=== PATIENT | female | born 1985 | race Hispanic/Latino ===

== ENCOUNTER 2018-06-15 16:16 | Outpatient (CLI) | payer MEDICAID ==
[2018-06-15 18:25] VITALS: BP 109/65
[2018-06-15 19:33] LABS: Basophils % (Auto) 0.3 % (0.0-1.8); Eosinophils # (Auto) 0.1 K/mm3 (0.0-0.4); Eosinophils % (Auto) 0.8 % (0.0-4.3); Hematocrit 31.7 % (30.3-42.9); Hemoglobin 10.3 gm/dl (10.1-14.3); Lymphocytes # (Auto) 2.5 K/mm3 (1.2-5.4); Lymphocytes % (Auto) 16.5 % (13.4-35.0); Mean Corpuscular HGB Conc 33 % (30-34); Mean Corpuscular Volume 72 fl (79-97); Monocytes # (Auto) 0.8 K/mm3 (0.0-0.8); Monocytes % (Auto) 4.9 % (0.0-7.3); Platelet Count 229 K/mm3 (140-440); Red Blood Count 4.42 M/mm3 (3.65-5.03); Red Cell Distribution Width 14.7 % (13.2-15.2)
[2018-06-15 19:38] LABS: Mean Corpuscular Hemoglobin 23 pg (28-32)
== END 2018-06-15 20:09 | disposition home or self-care (01) ==
LOC: TRG 16:16
PROVIDERS: ATTEND Obstetrics & Gynecology
DX: O47.03 False labor before 37 completed weeks of gestation, third trimester (principal); Z3A.37 37 weeks gestation of pregnancy
CPT/HCPCS: 36415; 59025; 85025

== ENCOUNTER 2018-07-21 08:01 | Outpatient (CLI) | payer MEDICAID ==
[2018-07-21] MEDS ORDERED: XYLOCAINE TOPICAL 4% TP ONE ×2 (08:27→12:02)
== END 2018-07-21 08:02 | disposition home or self-care (01) ==
LOC: WOUND 08:01
PROVIDERS: ATTEND Surgery
DX: T81.89XA Other complications of procedures, not elsewhere classified, initial encounter (principal); Y83.8 Other surgical procedures as the cause of abnormal reaction of the patient, or of later complication, without mention of misadventure at the time of the procedure; Y92.89 Other specified places as the place of occurrence of the external cause
CPT/HCPCS: 11042; G0463; 99214

== ENCOUNTER 2018-07-28 08:35 | Outpatient (CLI) | payer MEDICAID ==
[2018-07-28] MEDS ORDERED: XYLOCAINE TOPICAL 4% TP ONE ×2 (09:12→09:22)
== END 2018-07-28 08:36 | disposition home or self-care (01) ==
LOC: WOUND 08:35
PROVIDERS: ATTEND Surgery
DX: T81.89XD Other complications of procedures, not elsewhere classified, subsequent encounter (principal); Y83.8 Other surgical procedures as the cause of abnormal reaction of the patient, or of later complication, without mention of misadventure at the time of the procedure

== ENCOUNTER 2018-08-04 08:23 | Outpatient (CLI) | payer MEDICAID ==
[2018-08-04] MEDS ORDERED: XYLOCAINE TOPICAL 4% TP ONE ×2 (08:35→08:40)
== END 2018-08-04 08:24 | disposition home or self-care (01) ==
LOC: WOUND 08:23
PROVIDERS: ATTEND Surgery
DX: T81.89XD Other complications of procedures, not elsewhere classified, subsequent encounter (principal); Y83.8 Other surgical procedures as the cause of abnormal reaction of the patient, or of later complication, without mention of misadventure at the time of the procedure

== ENCOUNTER 2018-08-18 08:28 | Outpatient (CLI) | payer MEDICAID ==
[2018-08-18] MEDS ORDERED: XYLOCAINE TOPICAL 4% TP ONE ×2 (08:33→09:00)
== END 2018-08-18 08:29 | disposition home or self-care (01) ==
LOC: WOUND 08:28
PROVIDERS: ATTEND Surgery
DX: T81.89XD Other complications of procedures, not elsewhere classified, subsequent encounter (principal); Y83.8 Other surgical procedures as the cause of abnormal reaction of the patient, or of later complication, without mention of misadventure at the time of the procedure

== ENCOUNTER 2018-10-27 12:11 | Emergency (ER) | payer OTHER ==
--- NOTE | 2018-10-27 12:34 | Emergency Department Report ---
ED Abdominal Pain HPI - General Chief Complaint: Abdominal Pain Stated Complaint: WOUND INFECTED Time Seen by Provider: 10/27/18 12:34 Source: patient Mode of arrival: Ambulatory Limitations: No Limitations - History of Present Illness Initial Comments: Patient is a 33-year-old female that presents to emergency with complaints of increasing pain to her wound. Patient states that 4 months ago she delivered a baby via and she had a wound infection and has been seeing wound care. Patient since her wound has been improving however patient today experienced an increase in tenderness and pain at the wound site. Patient st oharas she has a small opening that she had packing with a silver packing. Patient states she can see him here for about 4 months. Basically spent also been followed by her DIRECTOR OF OPERATIONS SUPPORT. Patient denies fever chills. Patient states the pain is 6 out of 10. Patient denies chest pain. Patient denies nausea vomiting. Patient shortness breath. MD Complaint: abdominal pain -: Sudden Location: suprapubic Radiation: none Migration to: no migration Severity: moderate Severity scale (0 -10): 5 Quality: aching Consistency: constant Improves With: rest Worsens With: movement Context: recent surgery/procedure Associated Symptoms: denies: nausea, vomiting, diarrhea, fever, chills, constipation, dysuria, hematemesis, hematochezia, melena, hematuria, anorexia, syncope - Related Data LMP (females 10-50): 3 weeks (s/p tubal) Home Medications Medication Instructions Recorded Confirmed Last Taken lamoTRIgine [LaMICtal] 25 mg PO QAM 08/28/16 08/28/16 Unknown Previous Rx's Medication Instructions Recorded Last Taken Type Ibuprofen [Motrin] 800 mg PO Q8HR PRN #60 tablet 08/30/16 Unknown Rx Oxycodone HCl/Acetaminophen 1 each PO Q6HR PRN #45 tablet 08/30/16 Unknown Rx [Percocet 7.5/325 mg] Ferrous Sulfate [Feosol 325 MG tab] 325 mg PO BID #60 tablet 06/26/18 Unknown Rx Ibuprofen 800 mg PO Q8H PRN #30 tablet 06/26/18 Unknown Rx oxyCODONE /ACETAMINOPHEN [Percocet 1 tab PO Q6HR PRN #40 tablet 06/26/18 Unknown Rx 5/325] Doxycycline Hyclate [Doxycycline 100 mg PO Q12HR 10 Days #20 tab 10/27/18 Unknown Rx Hyclate TAB] Allergies Allergy/AdvReac Type Severity Reaction Status Date / Time No Known Allergies Allergy Verified 10/13/15 20:54 ED Review of Systems ROS: Stated complaint: WOUND INFECTED Other details as noted in HPI Constitutional: denies: chills, fever Eyes: denies: eye pain, eye discharge, vision change ENT: denies: ear pain, throat pain Respiratory: denies: cough, shortness of breath, wheezing Cardiovascular: denies: chest pain, palpitations Endocrine: no symptoms reported Gastrointestinal: abdominal pain. denies: nausea, diarrhea Genitourinary: denies: urgency, dysuria, discharge Musculoskeletal: denies: back pain, joint swelling, arthralgia Skin: denies: rash, lesions Neurological: denies: headache, weakness, paresthesias Psychiatric: denies: anxiety, depression Hematological/Lymphatic: denies: easy bleeding, easy bruising ED Past Medical Hx - Past Medical History Previous Medical History?: Yes Hx Hypertension: No Hx CVA: Yes (mini stroke seen here Aug) Hx Congestive Heart Failure: No Hx Diabetes: No Hx Renal Disease: No Hx Sickle Cell Disease: No Hx Headaches / Migraines: Yes (MIGRAINE) Hx Seizures: Yes (Last in March 2016 on Lomectol) Hx Psychiatric Treatment: Yes (BIPOLAR,ANXIETY) Hx Asthma: No Hx COPD: No Hx HIV: No - Surgical History Past Surgical History?: Yes Hx Cholecystectomy: Yes Additional Surgical History: C SECTION - Family History Family history: no significant - Social History Smoking Status: Never Smoker Substance Use Type: None - Medications Home Medications: Home Medications Medication Instructions Recorded Confirmed Last Taken Type lamoTRIgine [LaMICtal] 25 mg PO QAM 08/28/16 08/28/16 Unknown History Ibuprofen [Motrin] 800 mg PO Q8HR PRN #60 tablet 08/30/16 Unknown Rx Oxycodone HCl/Acetaminophen 1 each PO Q6HR PRN #45 tablet 08/30/16 Unknown Rx [Percocet 7.5/325 mg] Ferrous Sulfate [Feosol 325 MG tab] 325 mg PO BID #60 tablet 06/26/18 Unknown Rx Ibuprofen 800 mg PO Q8H PRN #30 tablet 06/26/18 Unknown Rx oxyCODONE /ACETAMINOPHEN [Percocet 1 tab PO Q6HR PRN #40 tablet 06/26/18 Unknown Rx 5/325] Doxycycline Hyclate [Doxycycline 100 mg PO Q12HR 10 Days #20 tab 10/27/18 Unknown Rx Hyclate TAB] ED Physical Exam - General Limitations: No Limitations General appearance: alert, in no apparent distress - Head Head exam: Present: atraumatic, normocephalic - Eye Eye exam: Present: normal appearance - ENT ENT exam: Present: mucous membranes moist - Neck Neck exam: Present: normal inspection - Respiratory Respiratory exam: Present: normal lung sounds bilaterally. Absent: respiratory distress - Cardiovascular Cardiovascular Exam: Present: regular rate, normal rhythm. Absent: systolic murmur, diastolic murmur, rubs, gallop - GI/Abdominal GI/Abdominal exam: Present: soft, tenderness (at wound. See skin exam. Palpation over open wound. He has a slight redness around wound. Rest of abdominal exam negative), normal bowel sounds - Extremities Exam Extremities exam: Present: normal inspection - Back Exam Back exam: Present: normal inspection - Neurological Exam Neurological exam: Present: alert, oriented X3 - Psychiatric Psychiatric exam: Present: normal affect, normal mood - Skin Skin exam: Present: warm, dry, normal color, erythema, other (open area noted in the inferior abdominal wall at scar. Area measures 1 cm x 1 cm around with a 1 cm depth. slight redness noted on edge. ). Absent: rash ED Course Vital Signs 10/27/18 10/27/18 12:15 15:20 Temperature 97.9 F Pulse Rate 87 82 Respiratory 18 18 Rate Blood Pressure 108/64 Blood Pressure 101/67 [Left] O2 Sat by Pulse 99 100 Oximetry - Reevaluation(s) Reevaluation #1: Patient given all results. She worsens any results. Patient given plan of care. Patient care. Patient to be discharged home. Patient is stable for discharge. Patient given discharge instructions. Patient given return to ER structures. Patient voiced understanding of all discharge instructions. 10/27/18 14:50 0 ED Medical Decision Making - Lab Data Result diagrams: 10/27/18 12:25 10/27/18 12:25 - Radiology Data Radiology results: report reviewed CT ABDOMEN PELVIS WITHOUT CONTRAST: HISTORY: abdominal pain, pain at wound, open wound. COMPARISON: none. TECHNIQUE: Helical CT in 1.25mm intervals without IV contrast. Sagittal and coronal reconstructions. FINDINGS: Lung bases: Normal. Liver: Normal. Biliary system: Cholecystectomy. Pancreas: Normal. Spleen: Normal. Kidneys/ureters/bladder: Normal. Adrenal glands: Normal. Aorta: Normal. Intestines: Normal. Appendix: Not confidently identified. Pelvic viscera: Normal. Ascites: None. Adenopathy: None. Musculoskeletal: The bony structures are intact and unremarkable. There appears to be shallow skin ulceration in the anterior pelvic wall. There is no evidence for underlying abscess or fistulous tract on noncontrast CT. IMPRESSION: Unremarkable CT scan of the abdomen and pelvis without contrast. Superficial wound in the anterior pelvic wall as described. Transcribed By: TTR Dictated By: JUDE MURILLO JR, MD Electronically Authenticated By: JUDE MURILLO JR, MD Signed Date/Time: 10/27/18 6265 - Medical Decision Making Patient is 33-year-old female that presents to [facility] with complaints of worseni ng pain to her "wound of her site. Patient found to have a superficial cellulitis at the wound. Patient be given antibiotics and discharged home. Patient stable for discharge. Patient given all results. Patient has CT done which showed no deep infection and no abscess underneath the wound bed. CT was negative. Labs were unremarkable. - Differential Diagnosis wound infection. Cellulitis. Abdominal pain. Critical care attestation.: If time is entered above; I have spent that time in minutes in the direct care of this critically ill patient, excluding procedure time. ED Disposition Clinical Impression: Cellulitis Qualifiers: Site of cellulitis: trunk Site of cellulitis of trunk: abdominal wall Qualified Code(s): L03.311 - Cellulitis of abdominal wall Open wound anterior abdominal wall Qualifiers: Encounter type: initial encounter Qualified Code(s): S31.109A - Unspecified open wound of abdominal wall, unspecified quadrant without penetration into peritoneal cavity, initial encounter Disposition: TO HOME OR SELFCARE Is pt being admited?: No Does the pt Need Aspirin: No Condition: Stable Instructions: Cellulitis (ED), Abdominal Pain (ED) Additional Instructions: Patient to follow up with wound care in 2-3 days. Patient to follow primary care in 2-3 days. Patient to return to ER if condition worsens. Patient take Tylenol or ibuprofen when necessary pain. Patient to take meds as directed. Patient to increase water. Patient to rest. Patient to continue wound care. Prescriptions: Doxycycline Hyclate [Doxycycline Hyclate TAB] 100 mg PO Q12HR 10 Days #20 tab Referrals: PRIMARY CARE, [Primary Care Provider] - 3-5 Days Time of Disposition: 15:04
[2018-10-27 12:41] LABS: Hematocrit 39.1 % (30.3-42.9); Hemoglobin 12.4 gm/dl (10.1-14.3); Mean Corpuscular HGB Conc 32 % (30-34); Mean Corpuscular Volume 78 fl (79-97); Platelet Count 244 K/mm3 (140-440); Red Cell Distribution Width 16.6 % (13.2-15.2)
[2018-10-27 12:53] LABS: Alanine Aminotransferase 11 units/L (7-56); Albumin 3.2 g/dL (3.9-5); BUN/Creatinine Ratio 10; Blood Urea Nitrogen 5 mg/dL (7-17); Calcium 8.4 mg/dL (8.4-10.2); Hemolysis Index 9
[2018-10-27 13:19] LABS: Anisocytosis 1+; Band Neutrophils # (Manual) 0.1 K/mm3; Hypochromasia 1+; Large Platelets Rare; Platelet Estimate Cons; Total Cells Counted 100
--- NOTE | 2018-10-27 13:35 | Cat Scan Report ---
CT ABDOMEN PELVIS WITHOUT CONTRAST: HISTORY: abdominal pain, pain at wound, open wound. COMPARISON: none. TECHNIQUE: Helical CT in 1.25mm intervals without IV contrast. Sagittal and coronal reconstructions. FINDINGS: Lung bases: Normal. Liver: Normal. Biliary system: Cholecystectomy. Pancreas: Normal. Spleen: Normal. Kidneys/ureters/bladder: Normal. Adrenal glands: Normal. Aorta: Normal. Intestines: Normal. Appendix: Not confidently identified. Pelvic viscera: Normal. Ascites: None. Adenopathy: None. Musculoskeletal: The bony structures are intact and unremarkable. There appears to be shallow skin ulceration in the anterior pelvic wall. There is no evidence for underlying abscess or fistulous tract on noncontrast CT. IMPRESSION: Unremarkable CT scan of the abdomen and pelvis without contrast. Superficial wound in the anterior pelvic wall as described.
[2018-10-27 15:21] VITALS: BP 101/67
== END 2018-10-27 15:22 | disposition home or self-care (01) ==
LOC: ED 12:11
DX: S31.109A Unspecified open wound of abdominal wall, unspecified quadrant without penetration into peritoneal cavity, initial encounter (principal); L03.311 Cellulitis of abdominal wall; F31.9 Bipolar disorder, unspecified; F41.9 Anxiety disorder, unspecified; G43.909 Migraine, unspecified, not intractable, without status migrainosus; Z86.73 Personal history of transient ischemic attack (TIA), and cerebral infarction without residual deficits; Z90.49 Acquired absence of other specified parts of digestive tract; Z79.899 Other long term (current) drug therapy; X58.XXXA Exposure to other specified factors, initial encounter; Y93.89 Activity, other specified; Y92.89 Other specified places as the place of occurrence of the external cause; Y99.8 Other external cause status
CPT/HCPCS: 36415; 74176; 80053; 82140; 82150; 83690; 85007; 85025

== ENCOUNTER 2018-10-30 08:57 | Outpatient (CLI) | payer OTHER ==
[2018-10-30] MEDS ORDERED: XYLOCAINE TOPICAL 4% TP ONE (09:31)
== END 2018-10-30 08:58 | disposition home or self-care (01) ==
LOC: WOUND 08:57
PROVIDERS: ATTEND Surgery
DX: T81.89XD Other complications of procedures, not elsewhere classified, subsequent encounter (principal); S31.104D Unspecified open wound of abdominal wall, left lower quadrant without penetration into peritoneal cavity, subsequent encounter; X58.XXXD Exposure to other specified factors, subsequent encounter; Y83.8 Other surgical procedures as the cause of abnormal reaction of the patient, or of later complication, without mention of misadventure at the time of the procedure
CPT/HCPCS: 99213; G0463

== ENCOUNTER 2018-11-06 08:04 | Outpatient (CLI) | payer OTHER | END 2018-11-06 08:05 | disposition home or self-care (01) | LOC: WOUND 08:04 | CPT/HCPCS: 99213; G0463 ==

== ENCOUNTER 2018-11-13 07:59 | Outpatient (CLI) | payer OTHER ==
[2018-11-13] MEDS ORDERED: XYLOCAINE TOPICAL 4% TP ONE (08:07)
== END 2018-11-13 08:00 | disposition home or self-care (01) ==
LOC: WOUND 07:59
PROVIDERS: ATTEND Surgery
DX: T81.89XD Other complications of procedures, not elsewhere classified, subsequent encounter (principal); Y83.8 Other surgical procedures as the cause of abnormal reaction of the patient, or of later complication, without mention of misadventure at the time of the procedure
CPT/HCPCS: 99214; G0463

== ENCOUNTER 2018-11-20 08:03 | Outpatient (CLI) | payer OTHER | END 2018-11-20 08:04 | disposition home or self-care (01) | LOC: WOUND 08:03 ==

== ENCOUNTER 2018-11-27 07:52 | Outpatient (CLI) | payer OTHER | END 2018-11-27 07:53 | disposition home or self-care (01) | LOC: WOUND 07:52 ==

== ENCOUNTER 2018-12-04 07:59 | Outpatient (CLI) | payer OTHER ==
[2018-12-04] MEDS ORDERED: XYLOCAINE TOPICAL 2% 30ML TP NR (08:04)
[2018-12-04] MEDS ORDERED: SILVER NITRATE TP ONE (08:45)
== END 2018-12-04 08:00 | disposition home or self-care (01) ==
LOC: WOUND 07:59
PROVIDERS: ATTEND Surgery
DX: T81.89XD Other complications of procedures, not elsewhere classified, subsequent encounter (principal); G40.89 Other seizures; Y83.8 Other surgical procedures as the cause of abnormal reaction of the patient, or of later complication, without mention of misadventure at the time of the procedure
CPT/HCPCS: 17250

== ENCOUNTER 2018-12-11 08:04 | Outpatient (CLI) | payer OTHER ==
[2018-12-11] MEDS ORDERED: XYLOCAINE TOPICAL 4% TP ONE (08:13)
== END 2018-12-11 08:05 | disposition home or self-care (01) ==
LOC: WOUND 08:04
PROVIDERS: ATTEND Surgery
DX: T81.89XD Other complications of procedures, not elsewhere classified, subsequent encounter (principal); G40.89 Other seizures; Y83.8 Other surgical procedures as the cause of abnormal reaction of the patient, or of later complication, without mention of misadventure at the time of the procedure
CPT/HCPCS: 99214; G0463